=== PATIENT | female | born 1960 ===

== ENCOUNTER 2017-01-09 07:06 | Inpatient (IN) | payer MEDICAID ==
--- NOTE | 2017-01-09 07:34 | ED PDOC ---
Arrival/HPI - General Chief Complaint: ENT Problem Time Seen by Provider: 01/09/17 07:07 Historian: Patient, Family (Son) - History of Present Illness Narrative History of Present Illness (Text): 01/09/17 07:25 A 56 year old female, whose past medical history includes hypertension and depression, presents to the emergency department complaining of throat pain for 3-4 days. Patient's son reports that since symptoms occurred, patient has been unable to swallow and has been spitting into a container. Patient's speech, along with other symptoms, has worsened for the past 2 days. Patient was prescribed Levofloxacin, 500 mg 1 tablet per day, by PMD. Patient notes fever and has taken Ibuprofen for it, but denies of nausea, vomiting, diarrhea, shortness of breath, cough, or any other complaints. PMD: Dr. Jacques Marie Time/Duration: < week (3-4 days, symptoms worsened for the past 2 days.) Symptom Onset: Gradual Symptom Course: Unchanged Activities at Onset: Rest, Light Context: Home Past Medical History - Provider Review Nursing Documentation Reviewed: Yes Family/Social History - Physician Review Nursing Documentation Reviewed: Yes Family/Social History: No Known Family HX Allergies/Home Meds Allergies/Adverse Reactions: Allergies No Known Allergies Allergy (Verified 01/09/17 11:34) Home Medications: Home Meds Medication Instructions Recorded Confirmed Atorvastatin [Lipitor] 10 mg PO DAILY 01/09/17 01/09/17 Ibandronate Sodium [Boniva] 150 mg PO .EVERYMONTH 01/09/17 01/09/17 Levofloxacin [Levofloxacin] 500 mg PO DAILY 01/09/17 01/09/17 Levothyroxine [Synthroid] 25 mcg PO DAILY 01/09/17 01/09/17 Metoprolol Succinate XL [Toprol XL] 25 mg PO DAILY 01/09/17 01/09/17 Zolpidem [Ambien] 10 mg PO HS 01/09/17 01/09/17 Review of Systems - Physician Review All systems were reviewed & negative as marked: Yes - Review of Systems Constitutional: Fevers Respiratory: absent: SOB, Cough Gastrointestinal: absent: Diarrhea, Nausea, Vomiting Physical Exam Vital Signs Reviewed: Yes Vital Signs Temp Pulse Resp BP Pulse Ox 01/09/17 10:19 78 18 120/71 100 01/09/17 09:47 80 18 124/70 100 01/09/17 09:07 89 18 100 01/09/17 08:23 89 18 129/79 100 01/09/17 07:15 101.2 F H 93 H 18 105/65 100 Temperature: Febrile Blood Pressure: Normal Pulse: Regular Respiratory Rate: Normal Appearance: Positive for: Well-Appearing Pain Distress: None Mental Status: Positive for: Alert and Oriented X 3 - Systems Exam Head: Present: Atraumatic, Normocephalic Pupils: Present: PERRL Extroacular Muscles: Present: EOMI Conjunctiva: Present: Normal Mouth: Present: Moist Mucous Membranes Pharnyx: Present: ERYTHEMA (right tonsillar erythema), Uvular Deviation (uvula deviated to the left), Other (right tonsillar swelling). No: Peritonsilar Swelling Neck: Present: Normal Range of Motion Respiratory/Chest: Present: Clear to Auscultation, Good Air Exchange. No: Respiratory Distress, Accessory Muscle Use Cardiovascular: Present: Regular Rate and Rhythm, Normal S1, S2. No: Murmurs Abdomen: Present: Normal Bowel Sounds. No: Tenderness, Distention, Peritoneal Signs Back: Present: Normal Inspection Upper Extremity: Present: Normal Inspection. No: Cyanosis, Edema Lower Extremity: Present: Normal Inspection. No: Edema Neurological: Present: GCS=15, CN II-XII Intact, Speech Normal Skin: Present: Warm, Dry, Normal Color. No: Rashes Psychiatric: Present: Alert, Oriented x 3, Normal Insight, Normal Concentration Medical Decision Making ED Course and Treatment: 01/09/17 07:35 Impression: 56 year old female with throat pain Differential Diagnosis included but are not limited to: Tonsillitis vs. Retropharyngeal abscess Plan: -- Neck CT -- Tylenol -- Decadron -- Blood Culture -- Reassess and disposition Progress Notes: 01/09/17 09:30 Consulted case with ENT and was informed to send a resident to evaluate patient. 01/09/2017 09:[address] IMPRESSION: Severe swelling of the right palatine tonsil with low density fluid collection measuring 8 x 40 mm. This is consistent with a tonsillar abscess. Swelling of the epiglottis and right-sided aryepiglottic fold consistent with epiglottitis. Dictator : Hipolito Templeton Patient placed on oxygen humidified and NS IVF. 01/09/17 09:[address] Frederick, general surgical physician, for standby. Dr. Soliman Sail Finisher Hand came an placed trach kit to bedside. 01/09/17 10:[address] Leon, ENT, who agrees with plan and is on the way to evaluate patient. 01/09/17 10:[address] Barrera, ICU attending, states he will accept case for ICU. Admitted to Dr. Shaikh for Epiglotitis - Critical Care Critical Care Minutes: 30 minutes - Lab Interpretations Lab Results: 01/09/17 07:55 01/09/17 07:55 Lab Results 01/09/17 07:55: TSH 3rd Generation 3.10 01/09/17 07:55: Sodium 142, Potassium 4.1, Chloride 105, Carbon Dioxide 27, Anion Gap 14, BUN 17, Creatinine 0.9, Est GFR ( Amer) > 60, Est GFR (Non- Af Amer) > 60, Random Glucose 118 H, Calcium 8.7 01/09/17 07:55: WBC 13.2 H, RBC 4.26, Hgb 12.1, Hct 37.1, MCV 87.1, MCH 28.4, MCHC 32.6, RDW 14.0, Plt Count 171, MPV 11.8 H, Gran % 75.6 H, Lymph % (Auto) 17.4 L, Barton % (Auto) 6.6 H, Eos % (Auto) 0.2 L, Baso % (Auto) 0.2, Gran # 9.99 H, Lymph # 2.3, Barton # 0.9 H, Eos # 0.0, Baso # 0.02, ESR 44 H I have reviewed the lab results: Yes - RAD Interpretation Radiology Orders: 01/09/17 07:38 NECK SOFT TISSUE W/CONTRAST [CT] Stat Order Clerk: Radiologist - Medication Orders Current Medication Orders: Sodium Chloride (Sodium Chloride 0.9%) 1,000 mls @ 100 mls/hr IV .Q10H DASH Last Admin: 01/09/17 09:45 Dose: 100 mls/hr Discontinued Medications Dexamethasone (Decadron Inj) 10 mg IVP STAT STA Stop: 01/09/17 07:39 Last Admin: 01/09/17 08:02 Dose: 10 mg Ceftriaxone Sodium (Rocephin 2 Gm Ivpb) 2 gm in 100 mls @ 100 mls/hr IVPB STAT STA PRN Reason: Protocol Stop: 01/09/17 10:33 Last Admin: 01/09/17 09:53 Dose: 100 mls/hr Iohexol (Omnipaque 350 100 Ml) Confirm Administered Dose 350 mg .ROUTE .STK-MED ONE Stop: 01/09/17 08:33 Ketorolac Tromethamine (Toradol) 30 mg IVP STAT STA Stop: 01/09/17 08:12 Last Admin: 01/09/17 08:16 Dose: 30 mg Re-Assess: CANDICE Pain Assessment Document 01/09/17 09:16 NH (Rec: 01/09/17 09:59 [id number] Pain Reassessment Is this a pain reassessment? Yes Sleep Is patient sleeping during reassessment? No Presence of Pain Presence of Pain Yes Pain Scale Used Pain Scale Used Numeric Location Pain Location Body Site Throat Description Description Constant Intensity of Pain at present 8 Acceptable Level of Pain 2 - Scribe Statement The provider has reviewed the documentation as recorded by the Dignaibpraful Ambrose Provider Scribe Attestation: All medical record entries made by the Scribe were at my direction and personally dictated by me. I have reviewed the chart and agree that the record accurately reflects my personal performance of the history, physical exam, medical decision making, and the department course for this patient. I have also personally directed, reviewed, and agree with the discharge instructions and disposition. Disposition/Present on Arrival - Present on Arrival Any Indicators Present on Arrival: No - Disposition Have Diagnosis and Disposition been Completed?: Yes Diagnosis: Tonsillar abscess, Epiglottitis Disposition Time: 10:21 Patient Plan: Admission, ICU Condition: CRITICAL
[2017-01-09 08:11] LABS: BASO # 0.02 K/mm3 (0.0-2.0); BASO % 0.2 % (0.0-3.0); EOS % 0.2 % (1.5-5.0); GRAN # 9.99 (1.4-6.5); GRAN % 75.6 % (50.0-68.0); HEMOGLOBIN 12.1 g/dL (12.0-16.0); LYMPH # 2.3 (1.2-3.4); LYMPH % 17.4 % (22.0-35.0); MEAN CELL VOLUME 87.1 fl (80.0-105.0); MEAN CORPUSCULAR HEMOGLOBIN 28.4 pg (25.0-35.0); MEAN CORPUSCULAR HGB CONC 32.6 g/dl (31.0-37.0); MEAN PLATELET VOLUME 11.8 fl (7.0-11.0); MONO # 0.9 (0.1-0.6); MONO % 6.6 % (1.0-6.0); PLATELET COUNT 171 10^3/uL (120.0-450.0); RBC 4.26 10^6/uL (3.5-6.1); WHITE BLOOD COUNT 13.2 10^3/ul (4.5-11.0)
[2017-01-09 08:21] LABS: BLOOD UREA NITROGEN 17 mg/dL (7-21); CALCIUM 8.7 mg/dL (8.4-10.5); GFR AFRICAN-AMERICAN > 60; GFR NON-AFRICAN AMERICAN > 60
[2017-01-09] MEDS ORDERED: Iohexol 350 MG/100 ML VIAL ONE (08:32)
[2017-01-09] MEDS ORDERED: cefTRIAXone 2 GM IN NS 2 GM/100 ML BAG IVPB STA (09:34)
--- NOTE | 2017-01-09 09:35 | CT ---
PROCEDURE: CT NECK WITH CONTRAST HISTORY: right swelling r/o retropharygneal abscess COMPARISON: None TECHNIQUE: CT of the neck with intravenous contrast. Coronal and sagittal reformats generated. Intravenous contrast dose: 100 cc of Omni 350 Radiation dose: DLP 268 mGy-cm This CT exam was performed using one or more of the following dose reduction techniques: Automated exposure control, adjustment of the mA and/or kV according to patient size, and/or use of iterative reconstruction technique. FINDINGS: NASOPHARYNX: Unremarkable. SUPRAHYOID NECK: There is severe swelling of the right palatine tonsil. There is also a central area of hypodensity within the tonsil measuring 9 mm in diameter and 40 mm in length. This is consistent with a tonsillar abscess. This is best demonstrated on sagittal image 40 and axial images 35 through 55. This collection extends down to the level of the larynx in the right piriform sinus seen on image 55. INFRAHYOID NECK: There is also swelling of the epiglottis consistent with epiglottitis. This is best seen on image 48. There is swelling of the right-sided area epiglottic fold seen on image 50. There is narrowing of the airway at this level . There is no evidence of retropharyngeal swelling or abscess. Findings were discussed with Dr. Barber at 9:30 a.m. MASS: None. GLANDS: Parotid and submandibular glands unremarkable. Normal size thyroid gland, without nodule. LYMPH NODES: Normal. No lymphadenopathy. CERVICAL SPINE: No fracture or focal lesion. VASCULAR STRUCTURES: Unremarkable. OTHER FINDINGS: None. IMPRESSION: Severe swelling of the right palatine tonsil with low density fluid collection measuring 8 x 40 mm. This is consistent with a tonsillar abscess. Swelling of the epiglottis and right-sided aryepiglottic fold consistent with epiglottitis.
[2017-01-09] MEDS: Sodium Chloride 0.9% 1,000 ML IV SCH ×2 (09:45→23:42)
--- NOTE | 2017-01-09 11:42 | CP.PCM.HP ---
<Murtaza Benavidez - Last Filed: 01/09/17 13:02> History of Present Illness - History of Present Illness History of Present Illness: Patient is a 56 year old female with PMH significant for HTN, HLD, Hypothyroidism and anxiety who presents with a 3-4 day history of progressively worsening throat pain. The patient has associated tenderness in her right neck and difficulty/pain with swallowing. Patient reports she is able to breath and swallow liquids. She reports fever for the past 24 hours and history of non productive cough for the past 1 month. The patient was prescribed levofloxacin 500mg by her PMD, Dr. Jacques Vail for which she has taken two days worth. She denies chest pain, shob, nausea, vomiting. Patient denies any previous history of similar presentations. Patient was evaluated in the ED with neck soft tissue CT showing severe swelling of the right palatine tonsil with low density fluid collection measuring 8x40 mm consistent with a tonsillar abscess. ENT was consulted and evaluated the patient at bedside. Patient was given ceftriaxone 1gm in the ED and admitted to the ICU for monitoring of airway status. PMH: Hypothyroid, HTN, HLD, Osteoporosis, Anxiety PSH: none FMH: none Soc Hx: T-,E-,D- All: NKDA Meds: See MAR PMD: Dr. Jacques Vail Present on Admission - Present on Admission Any Indicators Present on Admission: No History of DVT/PE: No History of Uncontrolled Diabetes: No Urinary Catheter: No Decubitus Ulcer Present: No Review of Systems - Constitutional Constitutional: Fever - EENT Eyes: As Per HPI Ears: As Per HPI Nose/Mouth/Throat: Change in Voice, Hoarsness, Sore Throat. absent: Nasal Congestion, Nasal Discharge, Lip Swelling, Mouth Lesions, Odynophagia, Throat Swelling - Cardiovascular Cardiovascular: absent: Chest Pain, Chest Pain at Rest, Dyspnea - Respiratory Respiratory: absent: Cough, Dyspnea, Hemoptysis, Stridor - Gastrointestinal Gastrointestinal: Dysphagia. absent: Abdominal Pain, Belching, Heartburn, Nausea, Vomiting - Genitourinary Genitourinary: As Per HPI - Musculoskeletal Musculoskeletal: As Per HPI. absent: Abnormal Gait, Arthralgias, Atrophy, Back Pain, Deformity, Joint Swelling, Limited Range of Motion, Loss of Height, Muscle Cramps, Muscle Weakness, Myalgias, Neck Pain, Numbness, Radiating Pain into Limb, Stiffness, Tingling, Other - Integumentary Integumentary: absent: As Per HPI, Acne, Alopecia, Bleeding Lesions, Change in Hair, Change in Nails, Change in Pigmentation, Changing Lesions, Dry Skin, Erythema, Furuncle, Hirsutism, Lesions, New Lesions, Non-Healing Lesions, Photosensitivity, Pruritus, Rash, Skin Pain, Skin Ulcer, Sores, Striae, Swelling , Unusual Bruising, Wounds, Jaundice, Other - Neurological Additional comments: negative - Psychiatric Psychiatric: Abnormal Sleep Pattern, Anxiety Past Patient History - Past Social History Smoking Status: Never Smoked Alcohol: None Drugs: Denies - CARDIAC Hx Hypercholesterolemia: Yes Hx Hypertension: Yes - PULMONARY Hx Respiratory Disorders: No - NEUROLOGICAL Hx Neurological Disorder: No - HEENT Hx HEENT Problems: No - RENAL Hx Chronic Kidney Disease: No - ENDOCRINE/METABOLIC Hx Hypothyroidism: Yes - HEMATOLOGICAL/ONCOLOGICAL Hx Blood Disorders: No - INTEGUMENTARY Hx Dermatological Problems: No - MUSCULOSKELETAL/RHEUMATOLOGICAL Hx Musculoskeletal Disorders: No - GASTROINTESTINAL Hx Gastrointestinal Disorders: No - GENITOURINARY/GYNECOLOGICAL Hx Genitourinary Disorders: No - PSYCHIATRIC Hx Psychophysiologic Disorder: No Hx Substance Use: No - SURGICAL HISTORY Hx Surgeries: No Meds Allergies/Adverse Reactions: Allergies Allergy/AdvReac Type Severity Reaction Status Date / Time No Known Allergies Allergy Verified 01/09/17 11:36 Physical Exam - Constitutional Appears: Well - Head Exam Head Exam: ATRAUMATIC, NORMAL INSPECTION, NORMOCEPHALIC - Eye Exam Eye Exam: EOMI, PERRL - ENT Exam ENT Exam: Mucous Membranes Moist, Normal Exam Additional comments: Tonsillitis, cervical soft tissue tenderness R>L, Uv[place]a midline - Neck Exam Neck exam: Positive for: Full Rom, Tenderness (soft tissue right more then left) - Respiratory Exam Respiratory Exam: Clear to Auscultation Bilateral, NORMAL BREATHING PATTERN. absent: Wheezes, Stridor - Cardiovascular Exam Cardiovascular Exam: REGULAR RHYTHM, +S1, +S2 - GI/Abdominal Exam GI & Abdominal Exam: Normal Bowel Sounds, Soft - Back Exam Back exam: FULL ROM, NORMAL INSPECTION - Neurological Exam Neurological exam: Alert, Oriented x3 Additional comments: motor and sensory grossly intact - Psychiatric Exam Psychiatric exam: Normal Affect, Normal Mood - Skin Skin Exam: Dry, Normal Color, Warm Results - Vital Signs Recent Vital Signs: Last Vital Signs Temp 98.2 F 01/09/17 11:27 Pulse 83 01/09/17 11:27 Resp 18 01/09/17 11:27 BP 121/70 01/09/17 11:27 Pulse Ox 100 01/09/17 11:27 - Labs Result Diagrams: 01/09/17 07:55 01/09/17 07:55 Assessment & Plan - Assessment and Plan (Free Text) Assessment: Pt is a 56 year old female with past medical history of HTN, Hypothyroid, Anxiety, HLD, and osteoporosis who presents with suspected epiglottitis secondary to right sided peritonsillar abscess Plan: 1. Epiglottitis - CT evidence showing severe welling of the right palatine tonsil with low density fluid collection measuring 8x40mm, consistent with tonsillar abscess. - Airway intact with no respiratory distress noted - O2 delivery for O2 sat goal >93% - NPO - IVF - ENT consulted and following - Antibiotics: Ceftriaxone and Vancomycin - admit to ICU for further monitoring 2. Hx of HTN - hold home HTN meds - monitor 3. Hx of HLD - hold home meds 4. Hx of Hypothyroidism - hold home meds 5. DVT ppx - SCDS dispo: monitor in ICU for airway status while awaiting intervention - Date & Time Date: 01/09/17 Time: 13:17 <Neema Shaikh - Last Filed: 01/09/17 16:58> Results - Vital Signs Recent Vital Signs: Last Vital Signs Temp 98.2 F 01/09/17 12:55 Pulse 80 01/09/17 16:05 Resp 14 01/09/17 16:05 BP 143/83 01/09/17 16:05 Pulse Ox 100 01/09/17 16:05 - Labs Result Diagrams: 01/09/17 07:55 01/09/17 07:55 Attending/Attestation - Attestation I have personally seen and examined this patient.: Yes I have fully participated in the care of the patient.: Yes I have reviewed all pertinent clinical information: Yes Notes (Text): 01/09/17 16:56 attending note; Patient seen and examined with resident in ER. patient's son by the bedside. Patient is a 56 year old female with PMH significant for HTN, HLD, Hypothyroidism and anxiety who presents with a 3-4 day history of progressively worsening throat pain. CT scan showed right peritonsillar abscess with significant swelling. Started on IV anti-biotics. Continue IV decadran. ENT evaluation requested. Patient will be admitted to ICU for close observation. The diagnosis and treatment plan discussed with patient and patient's son in detail.
[2017-01-09] MEDS ORDERED: Pneumococcal 23-Valent Vaccine IM ONE (13:31)
[2017-01-09 13:32] VITALS: BMI 21.1
[2017-01-09] MEDS: Dexamethasone 4 mg/1 ml IVP SCH ×2 (13:42→21:47)
[2017-01-09] MEDS ORDERED: Propofol 10 mg/ml Inj (20 ML) ONE (13:51)
[2017-01-09] MEDS ORDERED: Midazolam 2 MG/2 ML VIAL ONE (13:52)
[2017-01-09] MEDS ORDERED: Rocuronium 10 mg/ml (5 ml) ONE (13:53)
[2017-01-09] MEDS ORDERED: Succinylcholine 200 mg/10 ml Inj IV ONE (13:53)
[2017-01-09] MEDS ORDERED: Bupivacaine 0.25% Inj(30mL) ONE (13:54)
[2017-01-09] MEDS ORDERED: Propofol 10 mg/ml 1,000 MG/100 ML VIAL IV PRN (16:10)
[2017-01-09] MEDS ORDERED: Propofol 10 mg/ml 1,000 MG/100 ML VIAL ONE (16:14)
--- NOTE | 2017-01-09 17:26 | CP.PCM.PN ---
<KEIRY CHAVEZ - Last Filed: 01/09/17 17:29> Subjective - Date & Time of Evaluation Date of Evaluation: 01/09/17 Time of Evaluation: 11:00 - Subjective Subjective: Keiry Chavez DO PGY1 - ICU Consult Note Patient is a 56 yo F with PMH of HTN, HLD, hypothyroidism, and anxiety. She was seen in the ED initially, then postprocedure. She initially presented to the ED with 3-4 day history of worsening dysphagia. She also admits to some dyspnea , fever, cough. She has been taking levaquin per her PMD for the past two days. Denies SB, SOB, n/v/d/c. CT soft tissue neck in the ED was significant for severe swelling of the right palatine tonsil with low density fluid collection consistent with a tonsillar abscess, as well as swelling of the epiglottis consistent with epiglotitis. ENT was consulted and she was taken to the OR for drainage of the tonsilar abscess under anasthesia, rather than bedside, because of the high risk of airway compromise. In the OR, there was no collection of fluid noted or drained, so she remains intubated, and presented to the ICU for vent management and monitoring her airway and respiratory status. PMH: Hypothyroid, HTN, HLD, Osteoporosis, Anxiety PSH: none FMH: none Soc Hx: T-,E-,D- All: NKDA Meds: See AUG PMD: Dr. Jacques Vail Objective - Vital Signs/Intake and Output Vital Signs (last 24 hours): Temp Pulse Resp BP Pulse Ox 98.2 F 80 14 143/83 100 01/09/17 12:55 01/09/17 16:05 01/09/17 16:05 01/09/17 16:05 01/09/17 16:05 - Medications Medications: Current Medications Dexamethasone (Decadron Inj) 4 mg IVP Q8 DASH Last Admin: 01/09/17 13:42 Dose: 4 mg Sodium Chloride (Sodium Chloride 0.9%) 1,000 mls @ 100 mls/hr IV .Q10H DASH Last Admin: 01/09/17 09:45 Dose: 100 mls/hr Ampicillin Sodium/Sulbactam (Sodium 3 gm/ Sodium Chloride) 100 mls @ 200 mls/ hr IVPB Q6 DASH PRN Reason: Protocol Propofol (Diprivan) 1,000 mg in 100 mls @ 2 mls/hr IV .Q24H PRN; Protocol; 5 MCG/KG/MIN PRN Reason: TITRATE PER MD ORDER Ondansetron HCl (Zofran Inj) 4 mg IVP Q4H PRN PRN Reason: Nausea/Vomiting Pantoprazole Sodium (Protonix Inj) 40 mg IVP DAILY [facility] Last Admin: 01/09/17 14:09 Dose: 40 mg - Constitutional Appears: Other (Initially seen in the ED, receiving a nebulized breathing treatment and breathing O2 by facemask, resting comfortably. Seen again postprocedure, intubated, sedated.) - Head Exam Head Exam: ATRAUMATIC, NORMOCEPHALIC - Eye Exam Eye Exam: EOMI, Normal appearance, PERRL - ENT Exam ENT Exam: Mucous Membranes Moist Additional comments: Unable to visualize oropharynx - Neck Exam Additional comments: Mild tenderness anterior right. - Respiratory Exam Respiratory Exam: Clear to Ausculation Bilateral. absent: Stridor - Cardiovascular Exam Cardiovascular Exam: RRR, +S1, +S2 - GI/Abdominal Exam GI & Abdominal Exam: Soft, Normal Bowel Sounds. absent: Tenderness - Extremities Exam Extremities Exam: Normal Inspection. absent: Calf Tenderness, Pedal Edema - Neurological Exam Neurological Exam: Alert, Awake, Oriented x3 Additional comments: Seen initially in ED, grossly neurologically intact. Seen again postprocedure, sedated. - Psychiatric Exam Psychiatric exam: Normal Affect, Normal Mood - Skin Skin Exam: Dry, Intact Assessment and Plan - Assessment and Plan (Free Text) Assessment: Pt is a 56 year old female presenting to the ICU s/p incision and drainage of tonsillar abscess, intubated, for ventilator management and monitoring of respiratory status. Plan: 1. Epiglottitis and Tonsillar abscess - Patient is currently intubated. Started propofol for sedation. Patient was also receiving clindamycin for the tonsillar abscess, which was started preop. Approximately 30 minutes after propofol was started, urticarial hives noted on chest and neck. Propofol and clindamycin were discontinued. Given 50mg benadryl stat. No concern for airway compromise, and patient is already sedated. Started on fentanyl for continued sedation. - Will remain intubated and reevaluate with repeat contrast CT tomorrow - Lung protective ventilation strategies. Current setting 400/5/14/40% - ID consulted, recommends unasyn - ENT on consult - Continue fentanyl for comfort and sedation - Continue decadron for reduced inflammation - Likely extubate tomorrow - NPO until extubation, advance diet as tolerated - NS @100/hr to avoid contrast nephropathy - Maintain euglycemia, normothermia, MAP>65, O2 sat >90%, euvolemia Ppx: Protonix and SCDs Patient seen discussed and reviewed with attending <Ezekiel Barrera - Last Filed: 01/09/17 18:41> Objective - Vital Signs/Intake and Output Vital Signs (last 24 hours): Temp Pulse Resp BP Pulse Ox 97.4 F L 72 14 153/81 H 100 01/09/17 18:00 01/09/17 18:20 01/09/17 18:20 01/09/17 18:00 01/09/17 18:20 Intake and Output: 01/09/17 01/09/17 06:59 18:59 Intake Total 702 Output Total 400 Balance 302 - Medications Medications: Current Medications Dexamethasone (Decadron Inj) 4 mg IVP Q8 DASH Last Admin: 01/09/17 13:42 Dose: 4 mg Diphenhydramine HCl (Benadryl) 50 mg IVP Q4H PRN PRN Reason: Allergy symptoms Last Admin: 01/09/17 17:52 Dose: 50 mg Sodium Chloride (Sodium Chloride 0.9%) 1,000 mls @ 100 mls/hr IV .Q10H DASH Last Admin: 01/09/17 09:45 Dose: 100 mls/hr Ampicillin Sodium/Sulbactam (Sodium 3 gm/ Sodium Chloride) 100 mls @ 200 mls/ hr IVPB Q6 DASH PRN Reason: Protocol Last Admin: 01/09/17 18:02 Dose: Not Given Fentanyl Citrate (Fentanyl Citrate/Sodium Chloride 1 Mg/100 Ml) 1,000 mcg in 100 mls @ 2 mls/hr IV .Q24H PRN; Protocol; 20 MCG/HR PRN Reason: TITRATE PER MD ORDER Last Admin: 01/09/17 17:54 Dose: 20 mcg/hr, 2 mls/hr Ondansetron HCl (Zofran Inj) 4 mg IVP Q4H PRN PRN Reason: Nausea/Vomiting Pantoprazole Sodium (Protonix Inj) 40 mg IVP DAILY DASH Last Admin: 01/09/17 14:09 Dose: 40 mg Assessment and Plan - Assessment and Plan (Free Text) Assessment: Patient seen and examined with resident, agree with assessment and plan. Epiglottitis Tonsilar Abscess HTN Recommend - keep intubated, sedated for now - low tidal volume ventilation - Unasyn IV - follow up cultures - IVF - Decadron IV - NPO - repeat CT Neck in the AM - follow up ENT - GI ppx - DVT ppx - cont care in MICU
[2017-01-09] MEDS ORDERED: DiphenhydrAMINE 50 mg/ml Inj ONE (17:35)
[2017-01-09] MEDS: Ampicillin/Sulbactam 3 GM in Sodium Chloride 0.9% 100 ML IVPB SCH ×3 (17:51→23:40)
[2017-01-09] MEDS: DiphenhydrAMINE 50 mg/ml Inj IVP PRN ×2 (17:52→21:47)
[2017-01-09] MEDS: Fentanyl 1000mcg/100ml NS 1,000 MCG/100 ML BAG IV PRN (17:54)
--- NOTE | 2017-01-10 00:49 | CARD ---
APPROVED REPORT EKG Measurement Heart [id number] <Conclusion> Normal sinus rhythm Nonspecific ST and T wave abnormality Abnormal ECG
--- NOTE | 2017-01-10 00:58 | CON ---
DATE: 01/09/2017 REFERRING PHYSICIAN: Onel Barber DO REASON FOR CONSULTATION: Epiglottitis. HISTORY OF PRESENT ILLNESS: This is a 56-year-old female with past medical history of hypertension, depression, who came into the emergency room at [facility] complaining of a 3- to 4-day history of sore throat per the patient's son at the bedside. The patient has been having difficulty swallowing at home with very sore throat. She saw her primary care doctor, who prescribed her levofloxacin daily, which she has been taking for the past day or so without improvement in her symptoms. The patient's son reports that last night she also began to have some difficulty breathing prompting their visit to the emergency room today. The patient also reports fever and chills at home. Otherwise, she denies chest pain, shortness of breath, and nausea, vomiting, diarrhea. Upon examination, she is having difficult time speaking, her voice is soft and slightly raspy. She denies any current shortness of breath or difficulty breathing, but she does say it is very tender to touch her neck and also she does have odynophagia. The patient reports that she had a dental work done about 2 weeks ago, does not remember what the dentist was. The patient also reports no recent illnesses, cough, rhinorrhea, postnasal drip. Does not have any similar inciting events in the past. At this point, denies other ear, nose, and throat complaints. PAST MEDICAL HISTORY: Hypertension, hyperlipidemia, depression, and hypothyroidism. PAST SURGICAL HISTORY: She has had gynecological surgery. ALLERGIES: NO KNOWN DRUG ALLERGIES. SOCIAL HISTORY: Denies alcohol or tobacco abuse. Does not currently work. MEDICATIONS: Her home medications include Synthroid, metoprolol, atorvastatin, zolpidem, Boniva, and levofloxacin for the past 2 days. REVIEW OF SYSTEMS: Negative as per HPI. PHYSICAL EXAMINATION GENERAL: She is awake, alert, and oriented x3, in no acute distress. No stridor, no drooling, lying comfortably. VITAL SIGNS: Temperature 98.2, pulse 83, blood pressure 121/70, respiratory rate 18, O2 saturation 100% on humidified air. HEENT: Eyes, extraocular movements grossly intact. No visual changes. Ears, external auricles unremarkable. Nose is patent bilaterally. No discharge. No epistaxis. Oral cavity, oropharynx, lips are unremarkable. Floor of mouth unremarkable. Tongue, mobile and midline. Nonedematous. Soft palate is symmetrical. She does have bulging of the right peritonsillar area, but no uvular edema or uvular deviation. No exudates. No posterior pharyngeal wall erythema. NECK: Significant tenderness to palpation anterior, more so on the right side. Supple. Trachea is midline. No thyromegaly appreciated. LUNGS: Respirations are nonlabored. No stridor, no drooling, no wheezing appreciated. LABORATORY DATA: She has a white count of 13.2, hemoglobin 12.1, hematocrit 37.1, platelet count 171. She has sodium of 142, potassium 4.1, chloride 105, carbon dioxide 27, BUN 17, calcium 8.7, TSH is 3.10. IMAGING: She has a CT scan of the neck with contrast which reads as severe swelling of the right palatine tonsil with central area of hypodensity within the tonsil measuring 9 mm in diameter and 40 mm in length consistent with a tonsillar abscess. Collection extends down to the level of the larynx and the right pyriform sinus. There is also swelling of the epiglottis consistent with epiglottitis, also associated swelling of the right-sided aryepiglottic fold. There is narrowing of the airway at this level. No evidence of retropharyngeal swelling or abscess. PROCEDURE Direct fiber laryngoscopy. The patient was in an upright position and direct fiberoptic laryngoscope was inserted into the patient's nasal passageway. The nasal passages were patent and unremarkable. The scope was flexed down into the nasopharynx. The eustachian tubes were patent bilaterally. The posterior pharyngeal wall did demonstrate some swelling on the right. The uvula appeared nonedematous. There was swelling noted from the right peritonsillar area. Upon advancing the scope further down, the base of the tongue was noted to be normal. The epiglottis did have some mild edema, but was not retroflexed and was not covering the airway. Advancing the scope further, there was blunting of the right pyriform sinus. There was also moderate to severe swelling of the right aryepiglottic fold and false vocal cord, which was protruding into the airway and covering the right true vocal cord. The left true vocal cord was visualized, the cords appeared to approximate normally . The scope was removed and the patient tolerated the procedure well. SECOND PROCEDURE Right peritonsillar abscess, needle aspiration. After obtaining consent, the right peritonsillar region was injected with 1% lidocaine for vocal anesthesia, afterwards an 18-gauge needle on 10 cc Syringe was used on to the right peritonsillar space. About 1 mL of purulent material was drained and sent for culture. The patient tolerated the procedure well and adequate hemostasis was achieved at the termination of the procedure. ASSESSMENT AND PLAN: This is a 56-year-old female, who comes in with a 3-day history of a sore throat. CAT scan demonstrates right peritonsillar abscess which tracks down into the right pyriform area with associated edema to the epiglottis and right aryepiglottic fold. At this point, the abscess was unable to be drained at the bedside, therefore recommend draining of the abscess in the operating room. At the same time, the patient can be intubated to safely protect the airway given the concerning edematous changes to the epiglottis and aryepiglottic fold at this time. Attempted medical management, would recommend that the patient receive high-dose steroids and IV antibiotics, clindamycin or Unasyn. The patient should also be kept n.p.o. with IV fluids and plan for the operating room today. After the operating room, would recommend ICU management with continuous pulse oximetry and close monitoring for resolution of symptoms. Thank you for allowing us to participate in this patient's care. Atiilo Headley DO
--- NOTE | 2017-01-10 03:51 | OP ---
PROCEDURE DATE: 01/09/2017 PREOPERATIVE DIAGNOSIS: Right peritonsillar and pyriform sinus abscess and mild epiglottitis. POSTOPERATIVE DIAGNOSIS: Right peritonsillar and pyriform sinus abscess and mild epiglottitis. PROCEDURE: Incision and drainage of right peritonsillar abscess and direct laryngoscopy. SURGEON: Dr. Atilio Headley. DREDGE ENGINEER: Dr. Leon. TYPE OF ANESTHESIA: General endotracheal. FINDINGS: Small right peritonsillar abscess with associated edema to the right peritonsillar and right pyriform space and fullness of the right pyriform fossa in addition to mild epiglottic edema and right arytenoid area of the glottic and false vocal cord edema. IV FLUID INTAKE: Crystalloid. ESTIMATED BLOOD LOSS: 10 mL COMPLICATIONS: None. SPECIMEN: Culture from peritonsillar abscess. CONDITION: Intubated, stable to the ICU. INDICATION FOR PROCEDURE: This is a 56-year-old female with past medical history of hypertension, hyperlipidemia and hypothyroidism who came into the [place] [facility] with sore throat and had CAT scan of her neck demonstrating right tonsillar abscess tracking into the right pyriform sinus in addition to epiglottitis and aryepiglottic fold swelling. Attempt was made to drain the peritonsillar abscess at the bedside, however, minimal pus was drained. For the reason of securing the patient's airway due to the epiglottic and aryepiglottic swelling, the decision was made to bring the patient to the operating room for and incision and drainage and intubation to secure her airway. Benefits and risks of the procedure were discussed with the patient and her son at the bedside. She agreed to the procedure and signed informed consent. PROCEDURE IN DETAIL: On 01/09/2017, the patient was brought to the operating room and placed supine on operating table. At this point, general anesthesia was induced and a time-out was called confirming the patient's procedure and the patient's allergies. No perioperative antibiotics were given as they were not indicated. The McIvor mouthgag was used to open the oral cavity and suspended on the Liu stand. Swelling was noted to the right peritonsillar space extending down into the pyriform sinus. An #11 blade was used to make an incision in the right peritonsillar space. An Allis clamp was used to spread and open up the peritonsillar pocket. In addition, another incision was made in the lower lateral pole of the peritonsillar space, and again with an #11 blade, a hemostat was used to open up the space. A small amount of purulent drainage was expelled from this area and sent for culture. Afterwards, the McIvor mouthgag was removed from the oral cavity and direct laryngoscopy was performed. A tooth guard was inserted in the oral cavity on the upper dentition and direct laryngoscope was inserted into the oral cavity. The soft palate and hard palate were noted be normal. Uvula was noted to be normal. Left tonsil was noted to be normal. Right tonsil did demonstrate the left peritonsillar fullness. Direct laryngoscope was advanced further. The base of the tongue appeared to be normal. The epiglottis was noted to be slightly edematous and the right pyriform sinus was noted to be blunted and full in appearance. Upon applying pressure to the outside of the right neck, additional small amount of purulent material was seen draining from the right peritonsillar space into the pyriform sinus, which was suctioned. The aryepiglottic fold on the right demonstrated edema. The aryepiglottic fold on the left was normal in appearance. The left vocal cord was normal in appearance. The right vocal cord was nonedematous, but did demonstrate yellow darker tinge compared to the left. The left pyriform sinus was normal in appearance. At this point, no additional purulent drainage was able to be expressed by pressure on the neck, and through the already existing incision, the direct laryngoscope was removed from the patient's mouth and decision was made to terminate the procedure. The dental guard was removed from the patient's oral cavity. At the termination of the procedure, decision was made to leave the patient intubated due to the edema and swelling noted in the hypopharynx as described above. The patient tolerated the procedure well and was transferred to the ICU in stable condition. Atilio Headley DO
[2017-01-10] MEDS: Ampicillin/Sulbactam 3 GM in Sodium Chloride 0.9% 100 ML IVPB SCH ×3 (05:24→17:33)
[2017-01-10] MEDS: Dexamethasone 4 mg/1 ml IVP SCH ×3 (05:24→21:46)
[2017-01-10 06:55] LABS: GRAN # 9.57 (1.4-6.5); GRAN % 82.7 % (50.0-68.0); HEMOGLOBIN 11.1 g/dL (12.0-16.0); LYMPH # 1.4 (1.2-3.4); LYMPH % 11.9 % (22.0-35.0); MEAN CELL VOLUME 86.7 fl (80.0-105.0); MEAN CORPUSCULAR HEMOGLOBIN 27.8 pg (25.0-35.0); MEAN CORPUSCULAR HGB CONC 32.1 g/dl (31.0-37.0); MEAN PLATELET VOLUME 10.8 fl (7.0-11.0); MONO # 0.6 (0.1-0.6); MONO % 5.4 % (1.0-6.0); PLATELET COUNT 149 10^3/uL (120.0-450.0); RBC 3.99 10^6/uL (3.5-6.1); RED CELL DISTRIBUTION WIDTH 14.1 % (11.5-14.5); WHITE BLOOD COUNT 11.6 10^3/ul (4.5-11.0)
[2017-01-10 07:13] LABS: ALB/GLOB RATIO 1.2 (1.1-1.8); ALBUMIN 3.7 g/dL (3.0-4.8); ALT/SGPT 33 U/L (7-56); AST/SGOT 25 U/L (15-39); BLOOD UREA NITROGEN 21 mg/dL (7-21); CALCIUM 7.9 mg/dL (8.4-10.5); GFR AFRICAN-AMERICAN > 60; GFR NON-AFRICAN AMERICAN > 60
[2017-01-10] MEDS: Fentanyl 1000mcg/100ml NS 1,000 MCG/100 ML BAG IV PRN (07:36)
[2017-01-10] MEDS ORDERED: Iohexol 350 MG/100 ML VIAL ONE (09:43)
[2017-01-10] MEDS ORDERED: cefTRIAXone 2 GM IN NS 2 GM/100 ML BAG IVPB SCH (10:00)
[2017-01-10 10:09] LABS: INR 1.15 (0.93-1.08); PARTIAL THROMBOPLASTIN TIME 28.4 Seconds (23.7-30.8); PROTHROMBIN TIME 12.4 Seconds (9.9-11.8)
[2017-01-10] MEDS: Lactated Ringer's 1,000 ML IV SCH ×2 (10:45→17:39)
--- NOTE | 2017-01-10 10:49 | CP.PCM.PN ---
<Murtaza Benavidez - Last Filed: 01/10/17 11:19> Subjective - Date & Time of Evaluation Date of Evaluation: 01/10/17 Time of Evaluation: 10:47 - Subjective Subjective: Patient s/e this AM in ICU. No acute events overnight. Past 24 hours patient was taken to OR for drainage of peritonsillar abscess with ENT. Notes indicate minimal drainage of abscess and concern for airway protection. Patient was intubated in OR to maintain airway, and remains intubated this AM. Patient complains of continued throat discomfort and irritation from intubation tube. Pt denies chest pain, shortness of breath, abdominal pain, fever, nausea. Objective - Vital Signs/Intake and Output Vital Signs (last 24 hours): Temp Pulse Resp BP Pulse Ox 97.8 F 56 L 14 134/74 100 01/10/17 08:00 01/10/17 08:10 01/10/17 07:05 01/10/17 08:00 01/10/17 08:10 Intake and Output: 01/10/17 01/10/17 06:59 18:59 Intake Total 1500 5 Output Total 200 Balance 1300 5 - Medications Medications: Current Medications Dexamethasone (Decadron Inj) 4 mg IVP Q8 [facility] Last Admin: 01/10/17 05:24 Dose: 4 mg Diphenhydramine HCl (Benadryl) 50 mg IVP Q4H PRN PRN Reason: Allergy symptoms Last Admin: 01/09/17 21:47 Dose: 50 mg Heparin Sodium (Porcine) (Heparin) 5,000 units SC Q12 [facility] PRN Reason: Protocol Last Admin: 01/10/17 09:34 Dose: 5,000 units Ampicillin Sodium/Sulbactam (Sodium 3 gm/ Sodium Chloride) 100 mls @ 200 mls/ hr IVPB Q6 [facility] PRN Reason: Protocol Last Admin: 01/10/17 05:24 Dose: 200 mls/hr Fentanyl Citrate (Fentanyl Citrate/Sodium Chloride 1 Mg/100 Ml) 1,000 mcg in 100 mls @ 2 mls/hr IV .Q24H PRN; Protocol; 20 MCG/HR PRN Reason: TITRATE PER MD ORDER Last Titration: 01/10/17 08:21 Dose: 80 mcg/hr, 8 mls/hr Lactated Ringer's (Lactated Ringer's) 1,000 mls @ 150 mls/hr IV .Q6H40M [facility] Last Admin: 01/10/17 10:45 Dose: 150 mls/hr Ondansetron HCl (Zofran Inj) 4 mg IVP Q4H PRN PRN Reason: Nausea/Vomiting Pantoprazole Sodium (Protonix Inj) 40 mg IVP DAILY [facility] Last Admin: 01/10/17 09:35 Dose: 40 mg - Labs Labs: 01/10/17 06:40 01/10/17 06:40 PT 12.4 Seconds (9.9-11.8) H 01/10/17 09:53 INR 1.15 (0.93-1.08) H 01/10/17 09:53 APTT 28.4 Seconds (23.7-30.8) 01/10/17 09:53 - Head Exam Head Exam: ATRAUMATIC, NORMAL INSPECTION - Eye Exam Eye Exam: EOMI, PERRL - ENT Exam Additional comments: Intubated - Neck Exam Neck Exam: Tenderness (right sided>left sided) - Respiratory Exam Respiratory Exam: Clear to Ausculation Bilateral, NORMAL BREATHING PATTERN - Cardiovascular Exam Cardiovascular Exam: REGULAR RHYTHM, +S1, +S2 - GI/Abdominal Exam GI & Abdominal Exam: Soft, Normal Bowel Sounds - Extremities Exam Extremities Exam: Full ROM, Normal Inspection - Neurological Exam Neurological Exam: Alert, Awake, Oriented x3 Neuro motor strength exam: Left Upper Extremity: 5, Right Upper Extremity: 5, Left Lower Extremity: 5, Right Lower Extremity: 5 - Psychiatric Exam Psychiatric exam: Normal Affect, Normal Mood - Skin Skin Exam: Dry, Normal Color, Warm Assessment and Plan - Assessment and Plan (Free Text) Assessment: Patient is a 56 year old female with past medical history that includes HTN, Hypothyroid, HLD, and anxiety who was admitted to the ICU for epiglottitis secondary to peritonsillar abscess formation Plan: 1. Epiglottitis secondary to peritonsillar abscess - Repeat CT of neck to assess status/progression of abscess s/p drainage from yesterday - ENT consulted and following patient, possible surgery again today pending CT results - IVF to LR today due to elevated sodium - NPO - Maintain intubation status for protection of airway - Decadron IV - ID consutled, Unasyn IV with plan to switch to Augmentin upon discharge for outpatient follow up 2. Hx of HTN - stable - monitor 3. GI/DVT ppx - Protonix, SCDs <Estefania Beaulieu B - Last Filed: 01/10/17 15:24> Objective - Vital Signs/Intake and Output Vital Signs (last 24 hours): Temp Pulse Resp BP Pulse Ox 97.8 F 56 L 14 134/74 100 01/10/17 08:00 01/10/17 08:10 01/10/17 07:05 01/10/17 08:00 01/10/17 08:10 Intake and Output: 01/10/17 01/10/17 06:59 18:59 Intake Total 1500 5 Output Total 200 Balance 1300 5 - Medications Medications: Current Medications Dexamethasone (Decadron Inj) 4 mg IVP Q8 [facility] Last Admin: 01/10/17 14:40 Dose: 4 mg Diphenhydramine HCl (Benadryl) 50 mg IVP Q4H PRN PRN Reason: Allergy symptoms Last Admin: 01/09/17 21:47 Dose: 50 mg Heparin Sodium (Porcine) (Heparin) 5,000 units SC Q12 [facility] PRN Reason: Protocol Last Admin: 01/10/17 09:34 Dose: 5,000 units Ampicillin Sodium/Sulbactam (Sodium 3 gm/ Sodium Chloride) 100 mls @ 200 mls/ hr IVPB Q6 [facility] PRN Reason: Protocol Last Admin: 01/10/17 12:29 Dose: 200 mls/hr Fentanyl Citrate (Fentanyl Citrate/Sodium Chloride 1 Mg/100 Ml) 1,000 mcg in 100 mls @ 2 mls/hr IV .Q24H PRN; Protocol; 20 MCG/HR PRN Reason: TITRATE PER MD ORDER Last Titration: 01/10/17 08:21 Dose: 80 mcg/hr, 8 mls/hr Lactated Ringer's (Lactated Ringer's) 1,000 mls @ 150 mls/hr IV .Q6H40M [facility] Last Admin: 01/10/17 10:45 Dose: 150 mls/hr Ondansetron HCl (Zofran Inj) 4 mg IVP Q4H PRN PRN Reason: Nausea/Vomiting Pantoprazole Sodium (Protonix Inj) 40 mg IVP DAILY [facility] Last Admin: 01/10/17 09:35 Dose: 40 mg - Labs Labs: 01/10/17 06:40 01/10/17 06:40 PT 12.4 Seconds (9.9-11.8) H 01/10/17 09:53 INR 1.15 (0.93-1.08) H 01/10/17 09:53 APTT 28.4 Seconds (23.7-30.8) 01/10/17 09:53 Attending/Attestation - Attestation I have personally seen and examined this patient.: Yes I have fully participated in the care of the patient.: Yes I have reviewed all pertinent clinical information, including history, physical exam and plan: Yes Notes (Text): I have seen and examined patient at bedside. Agree with the above note with the following additions/ exceptions: Briefly this is 56 year old female with history of HTN, dyslipidemia, hypothyroidism, anxiety who presented with throat pain and found to have epiglotitis and peritonsillar abscess with significant swelling. Patient is alert, awake and intubated. Repeat CT scan pending for possible re exploration. Continue unasyn and decadron. Upon discharge patient will follow up with Dr Vail. Dr Estefania Beaulieu
--- NOTE | 2017-01-10 11:11 | CT ---
PROCEDURE: CT NECK WITH CONTRAST HISTORY: tonsilar abscess COMPARISON: CT of the neck 01/09/2017 TECHNIQUE: CT of the neck with intravenous contrast. Coronal and sagittal reformats generated. Intravenous contrast dose: 100 cc of Omni 350 Radiation dose: DLP 266 mGy-cm This CT exam was performed using one or more of the following dose reduction techniques: Automated exposure control, adjustment of the mA and/or kV according to patient size, and/or use of iterative reconstruction technique. FINDINGS: An endotracheal tube is now present which obscures many of the finding seen previously especially the epiglottic swelling and swelling of the right aryepiglottic fold. There is persistent swelling of the right palatine tonsil. The central fluid collections seen previously is faintly visible on today's study. Mildly enlarged cervical lymph nodes are seen right greater than left. IMPRESSION: Previously seen findings are partially obscured by the presence of an endotracheal tube. See comments
--- NOTE | 2017-01-10 11:26 | CP.PCM.PN ---
Subjective - Date & Time of Evaluation Date of Evaluation: 01/10/17 Time of Evaluation: 07:30 - Subjective Subjective: Keiry Chavez DO PGY1 - ICU Progress Note Patient seen and examined at bedside. Nurse reports no acute events overnight. Patient remained intubated, slightly sedated on fentanyl. Son is at bedside. She appears to be resting comfortably, on pressure support mode on the ventilator. Patient is arousable and responsive. She denies CP, SOB, fever, chills, nausea. Objective - Vital Signs/Intake and Output Vital Signs (last 24 hours): Temp Pulse Resp BP Pulse Ox 97.8 F 56 L 14 134/74 100 01/10/17 08:00 01/10/17 08:10 01/10/17 07:05 01/10/17 08:00 01/10/17 08:10 Intake and Output: 01/10/17 01/10/17 06:59 18:59 Intake Total 1500 5 Output Total 200 Balance 1300 5 - Medications Medications: Current Medications Dexamethasone (Decadron Inj) 4 mg IVP Q8 [facility] Last Admin: 01/10/17 05:24 Dose: 4 mg Diphenhydramine HCl (Benadryl) 50 mg IVP Q4H PRN PRN Reason: Allergy symptoms Last Admin: 01/09/17 21:47 Dose: 50 mg Heparin Sodium (Porcine) (Heparin) 5,000 units SC Q12 [facility] PRN Reason: Protocol Last Admin: 01/10/17 09:34 Dose: 5,000 units Ampicillin Sodium/Sulbactam (Sodium 3 gm/ Sodium Chloride) 100 mls @ 200 mls/ hr IVPB Q6 [facility] PRN Reason: Protocol Last Admin: 01/10/17 05:24 Dose: 200 mls/hr Fentanyl Citrate (Fentanyl Citrate/Sodium Chloride 1 Mg/100 Ml) 1,000 mcg in 100 mls @ 2 mls/hr IV .Q24H PRN; Protocol; 20 MCG/HR PRN Reason: TITRATE PER MD ORDER Last Titration: 01/10/17 08:21 Dose: 80 mcg/hr, 8 mls/hr Lactated Ringer's (Lactated Ringer's) 1,000 mls @ 150 mls/hr IV .Q6H40M [facility] Last Admin: 01/10/17 10:45 Dose: 150 mls/hr Ondansetron HCl (Zofran Inj) 4 mg IVP Q4H PRN PRN Reason: Nausea/Vomiting Pantoprazole Sodium (Protonix Inj) 40 mg IVP DAILY [facility] Last Admin: 01/10/17 09:35 Dose: 40 mg - Labs Labs: 01/10/17 06:40 01/10/17 06:40 PT 12.4 Seconds (9.9-11.8) H 01/10/17 09:53 INR 1.15 (0.93-1.08) H 01/10/17 09:53 APTT 28.4 Seconds (23.7-30.8) 01/10/17 09:53 - Constitutional Appears: Non-toxic, No Acute Distress - Head Exam Head Exam: ATRAUMATIC, NORMOCEPHALIC - Eye Exam Eye Exam: EOMI, Normal appearance - ENT Exam ENT Exam: Mucous Membranes Moist Additional comments: Patient remains intubated, difficult to assess oropharynx - Neck Exam Neck Exam: Normal Inspection - Respiratory Exam Respiratory Exam: Clear to Ausculation Bilateral. absent: Rales, Rhonchi - Cardiovascular Exam Cardiovascular Exam: RRR, +S1, +S2 - GI/Abdominal Exam GI & Abdominal Exam: Soft, Normal Bowel Sounds. absent: Tenderness - Extremities Exam Extremities Exam: Normal Inspection. absent: Calf Tenderness, Pedal Edema - Neurological Exam Neurological Exam: Alert, Awake, Oriented x3 - Psychiatric Exam Psychiatric exam: Normal Affect, Normal Mood - Skin Skin Exam: Dry, Intact Assessment and Plan - Assessment and Plan (Free Text) Assessment: Pt is a 56 year old female presenting to the ICU s/p incision and drainage of tonsillar abscess, intubated, for ventilator management and monitoring of respiratory status. Plan: Neuro: - Awake and alert, responding appropriately shaking/nodding head - Mildly sedated on fentanyl, will withdraw sedation prior to extubation CV: - Hemodynamically stable - Maintain MAP >65 Pulm: - On ventilator, started weaning protocol, currently on pressure support mode, patient is maintaining sat on 40% FiO2 - Will likely extubate today, after ENT evaluation, if cleared by them ENT: - Tonsillar abscess and epiglottitis, currently intubated to maintain airway - Repeat Soft Tissue CT neck with contrast to evaluate for continued swelling and assess status of fluid collection noted on prior exam - ENT consulted, will come evaluate today and potentially reoperate vs extubate - On decadron and unasyn GI: - Currently NPO - Advance diet after extubation - Protonix for ppx Renal: - Maintain euvolemia - Monitor and replete lytes as needed - Switched NS to LR@150 due to increasing sodium and hyperchloremia Endo: - Maintain euglycemia Hem: - Mild decrease in H/H, likely dilutional. No active bleed - Continue to monitor ID: - Tonsillar abscess and epiglottitis, s/p incision and drainage by ENT - Afebrile, leukocytosis improving - Continue unasyn per ID, continue decadron - Repeat CT scan today to look for resolution vs reaccumulation of fluid. Will be reassessed by ENT today to determine if it is safe to extubate her. GI/DVT Ppx - Protonix, heparin Patient seen, discussed, and reviewed with attending
--- NOTE | 2017-01-10 11:26 | RAD ---
HISTORY: intubated COMPARISON: No prior. FINDINGS: LUNGS: No active pulmonary disease. PLEURA: No significant pleural effusion identified, no pneumothorax apparent. CARDIOVASCULAR: Normal. OSSEOUS STRUCTURES: No significant abnormalities. VISUALIZED UPPER ABDOMEN: Normal. OTHER FINDINGS: None. IMPRESSION: Endotracheal tube in satisfactory position
--- NOTE | 2017-01-10 12:49 | CP.PCM.PN ---
Subjective - Date & Time of Evaluation Date of Evaluation: 01/10/17 Time of Evaluation: 08:30 - Subjective Subjective: Patient sen and examined. Patient remains intubated post procedure, doing well on CPAP. On Unasyn. No major complaints. Objective - Vital Signs/Intake and Output Vital Signs (last 24 hours): Temp Pulse Resp BP Pulse Ox 97.8 F 56 L 14 134/74 100 01/10/17 08:00 01/10/17 08:10 01/10/17 07:05 01/10/17 08:00 01/10/17 08:10 Intake and Output: 01/10/17 01/10/17 06:59 18:59 Intake Total 1500 5 Output Total 200 Balance 1300 5 - Medications Medications: Current Medications Dexamethasone (Decadron Inj) 4 mg IVP Q8 [facility] Last Admin: 01/10/17 05:24 Dose: 4 mg Diphenhydramine HCl (Benadryl) 50 mg IVP Q4H PRN PRN Reason: Allergy symptoms Last Admin: 01/09/17 21:47 Dose: 50 mg Heparin Sodium (Porcine) (Heparin) 5,000 units SC Q12 [facility] PRN Reason: Protocol Last Admin: 01/10/17 09:34 Dose: 5,000 units Ampicillin Sodium/Sulbactam (Sodium 3 gm/ Sodium Chloride) 100 mls @ 200 mls/ hr IVPB Q6 [facility] PRN Reason: Protocol Last Admin: 01/10/17 05:24 Dose: 200 mls/hr Fentanyl Citrate (Fentanyl Citrate/Sodium Chloride 1 Mg/100 Ml) 1,000 mcg in 100 mls @ 2 mls/hr IV .Q24H PRN; Protocol; 20 MCG/HR PRN Reason: TITRATE PER MD ORDER Last Titration: 01/10/17 08:21 Dose: 80 mcg/hr, 8 mls/hr Lactated Ringer's (Lactated Ringer's) 1,000 mls @ 150 mls/hr IV .Q6H40M [facility] Last Admin: 01/10/17 10:45 Dose: 150 mls/hr Ondansetron HCl (Zofran Inj) 4 mg IVP Q4H PRN PRN Reason: Nausea/Vomiting Pantoprazole Sodium (Protonix Inj) 40 mg IVP DAILY [facility] Last Admin: 01/10/17 09:35 Dose: 40 mg - Labs Labs: 08/10/17 06:40 01/10/17 06:40 PT 12.4 Seconds (9.9-11.8) H 01/10/17 09:53 INR 1.15 (0.93-1.08) H 01/10/17 09:53 APTT 28.4 Seconds (23.7-30.8) 01/10/17 09:53 - Constitutional Appears: Well, Non-toxic - Head Exam Head Exam: ATRAUMATIC - Eye Exam Eye Exam: Normal appearance - Respiratory Exam Respiratory Exam: Clear to Ausculation Bilateral, NORMAL BREATHING PATTERN - Cardiovascular Exam Cardiovascular Exam: RRR, +S1, +S2 - GI/Abdominal Exam GI & Abdominal Exam: Soft, Normal Bowel Sounds - Extremities Exam Extremities Exam: Full ROM - Neurological Exam Neurological Exam: Awake Assessment and Plan - Assessment and Plan (Free Text) Assessment: 56yo female a/w Epiglottitis, tonsilar abscess Epiglottitis Tonsilar Abscess HTN Recommend - patient doing well on ventilator, awaiting ENT recommendations regarding possible OR re-exploration, otherwise would extubate if has cuff leak - repeat CT scan of neck is obscured by ETT - low tidal volume ventilation - Unasyn IV - follow up cultures - aggressive IVF hydration, patient received contrast - Decadron IV - NPO - repeat CT Neck in the AM - follow up ENT - monitor FS - GI ppx - DVT ppx - cont care in MICU
--- NOTE | 2017-01-10 15:39 | CP.PCM.CON ---
History of Present Illness - History of Present Illness History of Present Illness: 56 year old female with PMH of HTN, dyslipidemia, hypothyroidism, anxiety disorder, osteoporosis was brought in to [facility] because of worsening throat pain for the past 3-4 days with difficulty in swallowing both solids and liquids. She denies SOB or difficulty breathing. She has subjective fevers and chills, no cough or colds, no headache or dizziness, no blurring of vision, no chest pain, no abdominal pain, no diarrhea, no dysuria. She was prescribed Levaquin as an outpatient with minimal relief, CT of the neck showed peritonsillar abscess and she underwent I and D by ENT. Infectious Diseases consult is requested to further evaluate and manage. Review of Systems - Review of Systems All systems: reviewed and no additional remarkable complaints except (as per hPI ) Past Patient History - Past Social History Smoking Status: Never Smoked Alcohol: None Drugs: Denies - CARDIAC Hx Hypercholesterolemia: Yes Hx Hypertension: Yes - PULMONARY Hx Respiratory Disorders: No - NEUROLOGICAL Hx Neurological Disorder: No - HEENT Hx HEENT Problems: No - RENAL Hx Chronic Kidney Disease: No - ENDOCRINE/METABOLIC Hx Hypothyroidism: Yes - HEMATOLOGICAL/ONCOLOGICAL Hx Blood Disorders: No - INTEGUMENTARY Hx Dermatological Problems: No - MUSCULOSKELETAL/RHEUMATOLOGICAL Hx Musculoskeletal Disorders: No - GASTROINTESTINAL Hx Gastrointestinal Disorders: No - GENITOURINARY/GYNECOLOGICAL Hx Genitourinary Disorders: No - PSYCHIATRIC Hx Psychophysiologic Disorder: No Hx Substance Use: No - SURGICAL HISTORY Hx Surgeries: No Meds Allergies/Adverse Reactions: Allergies Allergy/AdvReac Type Severity Reaction Status Date / Time No Known Allergies Allergy Verified 01/09/17 11:36 - Medications Medications: Current Medications Dexamethasone (Decadron Inj) 4 mg IVP Q8 [facility] Last Admin: 01/09/17 13:42 Dose: 4 mg Sodium Chloride (Sodium Chloride 0.9%) 1,000 mls @ 100 mls/hr IV .Q10H [facility] Last Admin: 01/09/17 09:45 Dose: 100 mls/hr Ampicillin Sodium/Sulbactam (Sodium 3 gm/ Sodium Chloride) 100 mls @ 200 mls/ hr IVPB Q6 [facility] PRN Reason: Protocol Ondansetron HCl (Zofran Inj) 4 mg IVP Q4H PRN PRN Reason: Nausea/Vomiting Pantoprazole Sodium (Protonix Inj) 40 mg IVP DAILY [facility] Last Admin: 01/09/17 14:09 Dose: 40 mg Physical Exam - Constitutional Appears: Non-toxic, No Acute Distress - Head Exam Head Exam: NORMAL INSPECTION - Neck Exam Neck exam: Negative for: Meningismus - Respiratory Exam Respiratory Exam: Decreased Breath Sounds - Cardiovascular Exam Cardiovascular Exam: +S1, +S2 - GI/Abdominal Exam GI & Abdominal Exam: Soft. absent: Tenderness Results - Vital Signs Recent Vital Signs: Last Vital Signs Temp 98.2 F 01/09/17 12:55 Pulse 83 01/09/17 12:55 Resp 18 01/09/17 12:55 BP 121/70 01/09/17 12:55 Pulse Ox 98 01/09/17 12:20 - Labs Result Diagrams: 01/10/17 06:40 01/10/17 06:40 Assessment & Plan - Assessment and Plan (Free Text) Plan: Assessment Sepsis due to peritonsillar abscess S/P I and D POD #1 HTN dyslipidemia hypothyroidism anxiety disorder osteoporosis Plan Started patient on Unasyn pending blood cx and cx of the peritonsillar abscess will monitor clinically
--- NOTE | 2017-01-10 22:41 | PN ---
DATE: 01/10/2017 EAR, NOSE AND THROAT PROGRESS NOTE SUBJECTIVE: Patient seen and examined at the bedside. She was extubated about an hour ago and is saturating well on 2 liters of nasal cannula. Patient states she was feeling improved from yesterday. She does still note some right-sided neck pain, however, this is improved. She denies any difficulty breathing, shortness of breath, noisy breathing, stridor, drooling, inability to tolerate saliva. She does note a little pain with swallowing, however, no dysphagia. Denies fevers, chills, overnight chest pain, shortness of breath. PHYSICAL EXAMINATION GENERAL: She is awake, alert, oriented x3 in no acute distress, resting comfortably. VITAL SIGNS: Temperature 98.2, pulse is 60, respirations 19, blood pressure 117/56, 100% O2 saturation on nasal cannula. HEENT: Eyes, extraocular movements grossly intact. Nose is patent bilaterally. No discharge. No epistaxis. Oral cavity, oropharynx, lips are unremarkable. No floor of mouth edema. Tongue, mobile and midline. Uvula midline. There is erythema to the right peritonsillar region at the surgical incision site, however, no drainage or bleeding or edema noted. Posterior pharynx is clear. NECK: Soft, supple, trachea midline, no thyromegaly, slightly tender to palpation on the right side. No masses, lesions or lymphadenopathy palpated. Respirations are nonlabored. No stridor. LABORATORY DATA: She has white blood cell count of 11.6, hemoglobin 11.1, hematocrit 34.6, platelets of 149. PT 12.4, INR 1.15. Her blood cultures from 01/09 are negative to date. Gram stains of the peritonsillar abscess culture showing a rare gram negative rods with results to follow. CAT scan, she had a repeat CAT scan this morning before extubation, which demonstrated an endotracheal tube in place, which obscures some of the findings seen yesterday and central fluid collection seen previously faintly visible on the scan today. PROCEDURE: Direct fiber laryngoscopy. The direct fiber laryngoscope was inserted into the patient's left nasal cavity and advanced to the posterior nasopharynx where it is flexed down towards the larynx. The base of the tongue and posterior pharynx overall demonstrating normal anatomy. There was some small amount of erythema to the right peritonsillar region where the incision was made yesterday. The epiglottis has been normal in appearance. The pyriform sinus was slightly blunted on the right side, however, improved from yesterday and nonobstructive. Pyriform sinus on the left side was normal. Area of the glottic fold with no edema on both sides, vocal cords with no edema, and ____ approximated normally during pronation. Scope was removed and the patient tolerated the procedure well. ASSESSMENT AND PLAN: This is a 56-year-old female who presented yesterday with peritonsillar and pyriform sinus abscess with a mild epiglottitis and swelling to the area of epiglottic fold. She is now status post intubation with drainage of the peritonsillar abscess in the operating room yesterday, postop day 1. She has been since extubated and is saturating well on room air. At this point, we recommend continuing high dose steroid, Decadron 8 mg q. 8 and Unasyn 3 mg q. 6 while the patient is in-house. We will put her on humidified air as needed. Tonight, we would start her on a clear liquid diet and advance tomorrow morning for breakfast. She is okay to resume heparin subq as we will not be performing any additional procedures at this time. If patient continues to improve clinically, would clear her for discharge tomorrow on p.o. Augmentin and Medrol Dosepak. She will be instructed to follow up in the office with us within 1 week to ensure resolution of her symptoms. I would also follow up the cultures that were taken at the bedside in the operating room incision and drainage to tailor antibiotic therapy. Remainder of the management is as per the primary team. At this point, would be okay to place her in a stepdown unit. Atilio Headley DO
[2017-01-10] MEDS: DiphenhydrAMINE 50 mg/ml Inj IVP PRN (22:57)
[2017-01-11] MEDS: Ampicillin/Sulbactam 3 GM in Sodium Chloride 0.9% 100 ML IVPB SCH ×3 (00:15→12:24)
[2017-01-11] MEDS: Lactated Ringer's 1,000 ML IV SCH ×3 (02:17→14:11)
[2017-01-11] MEDS: Dexamethasone 4 mg/1 ml IVP SCH ×2 (05:57→14:10)
[2017-01-11 06:29] LABS: HEMOGLOBIN 10.9 g/dL (12.0-16.0); LYMPH # 1.5 (1.2-3.4); LYMPH % 17.6 % (22.0-35.0); MEAN CELL VOLUME 88.1 fl (80.0-105.0); MEAN CORPUSCULAR HEMOGLOBIN 28.3 pg (25.0-35.0); MEAN CORPUSCULAR HGB CONC 32.2 g/dl (31.0-37.0); MEAN PLATELET VOLUME 11.8 fl (7.0-11.0); MONO # 0.3 (0.1-0.6); MONO % 3.4 % (1.0-6.0); PLATELET COUNT 167 10^3/uL (120.0-450.0); RBC 3.85 10^6/uL (3.5-6.1); RED CELL DISTRIBUTION WIDTH 14.6 % (11.5-14.5); WHITE BLOOD COUNT 8.4 10^3/ul (4.5-11.0)
[2017-01-11 06:41] LABS: ALB/GLOB RATIO 1.2 (1.1-1.8); ALBUMIN 3.6 g/dL (3.0-4.8); ALT/SGPT 30 U/L (7-56); AST/SGOT 23 U/L (15-39); BLOOD UREA NITROGEN 23 mg/dL (7-21); CALCIUM 8.2 mg/dL (8.4-10.5); GFR AFRICAN-AMERICAN > 60; GFR NON-AFRICAN AMERICAN > 60
[2017-01-11 08:36] VITALS: BP 145/90; TEMP 97.8
--- NOTE | 2017-01-11 10:09 | CP.PCM.PN ---
Subjective - Date & Time of Evaluation Date of Evaluation: 01/11/17 Time of Evaluation: 09:30 - Subjective Subjective: Comfortable, now extubated, afebrile overnight. Objective - Vital Signs/Intake and Output Vital Signs (last 24 hours): Temp Pulse Resp BP Pulse Ox 98 F 51 L 16 121/64 96 01/11/17 04:00 01/11/17 04:50 01/11/17 04:50 01/11/17 04:00 01/11/17 04:50 Intake and Output: 01/10/17 01/11/17 18:59 06:59 Intake Total 1955 Balance 1955 - Medications Medications: Current Medications Dexamethasone (Decadron Inj) 8 mg IVP Q8 [facility] Last Admin: 01/11/17 05:57 Dose: 8 mg Diphenhydramine HCl (Benadryl) 50 mg IVP Q4H PRN PRN Reason: Allergy symptoms Last Admin: 01/10/17 22:57 Dose: 50 mg Heparin Sodium (Porcine) (Heparin) 5,000 units SC Q12 [facility] PRN Reason: Protocol Last Admin: 01/10/17 09:34 Dose: 5,000 units Ampicillin Sodium/Sulbactam (Sodium 3 gm/ Sodium Chloride) 100 mls @ 200 mls/ hr IVPB Q6 [facility] PRN Reason: Protocol Last Admin: 01/11/17 05:58 Dose: 200 mls/hr Lactated Ringer's (Lactated Ringer's) 1,000 mls @ 150 mls/hr IV .Q6H40M [facility] Last Admin: 01/11/17 02:17 Dose: 150 mls/hr Ondansetron HCl (Zofran Inj) 4 mg IVP Q4H PRN PRN Reason: Nausea/Vomiting Pantoprazole Sodium (Protonix Inj) 40 mg IVP DAILY [facility] Last Admin: 01/10/17 09:35 Dose: 40 mg - Labs Labs: 01/10/17 06:40 01/10/17 06:40 PT 12.4 Seconds (9.9-11.8) H 01/10/17 09:53 INR 1.15 (0.93-1.08) H 01/10/17 09:53 APTT 28.4 Seconds (23.7-30.8) 01/10/17 09:53 - Constitutional Appears: Non-toxic, No Acute Distress - Head Exam Head Exam: NORMAL INSPECTION - Neck Exam Neck Exam: absent: Meningismus - Respiratory Exam Respiratory Exam: Decreased Breath Sounds - Cardiovascular Exam Cardiovascular Exam: +S1, +S2 - GI/Abdominal Exam GI & Abdominal Exam: Soft. absent: Tenderness Assessment and Plan - Assessment and Plan (Free Text) Plan: Assessment Sepsis due to peritonsillar abscess S/P I and D POD #2, growing gram negative bacilli on gram stain of the abscess HTN dyslipidemia hypothyroidism anxiety disorder osteoporosis Plan continue Unasyn day 2 pending indentification and sensitivities of the gram negative bacilli in the abscess; blood cx are negative will continue to monitor clinically
[2017-01-11 10:41] VITALS: PULSE 59; RESP 21; O2SAT 96
--- NOTE | 2017-01-11 14:39 | CP.PCM.DIS ---
Provider - Provider Date of Admission: 01/09/17 10:21 Attending physician: Estefania Beaulieu MD Primary care physician: PMD: Dr. Jacques Vail Consults: ENT: Dr. Atilio Headley Infectious Disease: Dr. Perez Bautista Pulmonary and Critical Care: Dr. Ezekiel Barrera Time Spent in preparation of Discharge (in minutes): 30 Diagnosis - Discharge Diagnosis (1) Epiglottitis Status: Acute (2) Tonsillar abscess Status: Acute Hospital Course - Lab Results Lab Results: Micro Results 01/09/17 15:30 Other: Please Indicate Gram Stain - Final 01/09/17 15:30 Other: Please Indicate Anaerobic Culture - Final NO ANAEROBES ISOLATED. 01/09/17 15:30 Other: Please Indicate Wound Culture - Preliminary Gram Positive Cocci Most Recent Lab Values WBC 8.4 10^3/ul (4.5-11.0) D 01/11/17 06:10 RBC 3.85 10^6/uL (3.5-6.1) 01/11/17 06:10 Hgb 10.9 g/dL (12.0-16.0) L 01/11/17 06:10 Hct 33.9 % (36.0-48.0) L 01/11/17 06:10 MCV 88.1 fl (80.0-105.0) 01/11/17 06:10 MCH 28.3 pg (25.0-35.0) 01/11/17 06:10 MCHC 32.2 g/dl (31.0-37.0) 01/11/17 06:10 RDW 14.6 % (11.5-14.5) H 01/11/17 06:10 Plt Count 167 10^3/uL (120.0-450.0) 01/11/17 06:10 MPV 11.8 fl (7.0-11.0) H 01/11/17 06:10 Gran % 79.0 % (50.0-68.0) H 01/11/17 06:10 Lymph % (Auto) 17.6 % (22.0-35.0) L 01/11/17 06:10 Gonzales % (Auto) 3.4 % (1.0-6.0) 01/11/17 06:10 Eos % (Auto) 0.0 % (1.5-5.0) L 01/11/17 06:10 Baso % (Auto) 0.0 % (0.0-3.0) 01/11/17 06:10 Gran # 6.60 (1.4-6.5) H 01/11/17 06:10 Lymph # 1.5 (1.2-3.4) 01/11/17 06:10 Gonzales # 0.3 (0.1-0.6) 01/11/17 06:10 Eos # 0.0 (0.0-0.7) 01/11/17 06:10 Baso # 0.00 K/mm3 (0.0-2.0) 01/11/17 06:10 ESR 44 mm/hr (0.0-20.0) H 01/09/17 07:55 PT 12.4 Seconds (9.9-11.8) H 01/10/17 09:53 INR 1.15 (0.93-1.08) H 01/10/17 09:53 APTT 28.4 Seconds (23.7-30.8) 01/10/17 09:53 Sodium 144 mmol/L (132-148) 01/11/17 06:10 Potassium 3.9 mmol/L (3.6-5.0) 01/11/17 06:10 Chloride 107 mmol/L (98-107) 01/11/17 06:10 Carbon Dioxide 27 mmol/L (21-33) 01/11/17 06:10 Anion Gap 14 (10-20) 01/11/17 06:10 BUN 23 mg/dL (7-21) H 01/11/17 06:10 Creatinine 0.7 mg/dL (0.5-1.4) 01/11/17 06:10 Est GFR ( Amer) > 60 01/11/17 06:10 Est GFR (Non-Af Amer) > 60 01/11/17 06:10 POC Glucose (mg/dL) 141 mg/dL (65-110) H 01/11/17 07:40 Random Glucose 132 mg/dL (70-110) H 01/11/17 06:10 Calcium 8.2 mg/dL (8.4-10.5) L 01/11/17 06:10 Total Bilirubin 0.3 mg/dL (0.2-1.3) 01/11/17 06:10 AST 23 U/L (15-39) 01/11/17 06:10 ALT 30 U/L (7-56) 01/11/17 06:10 Alkaline Phosphatase 43 U/L (38-133) 01/11/17 06:10 Total Protein 6.5 g/dL (5.8-8.3) 01/11/17 06:10 Albumin 3.6 g/dL (3.0-4.8) 01/11/17 06:10 Globulin 2.9 gm/dL 01/11/17 06:10 Albumin/Globulin Ratio 1.2 (1.1-1.8) 01/11/17 06:10 TSH 3rd Generation 3.10 mIU/mL (0.46-4.68) 01/09/17 07:55 - Hospital Course Hospital Course: 56 year old female with past medical history of HTN, HLD, Hypothyroidism and anxiety who was admitted for right peritonsillar abscess with associated edema to the epiglottis. The patient was evaluated in ED with soft tissue neck CT showing severe swelling of the right palatine tonsil with low density fluid collection measuring 8x40 mm and swelling of the epiglottis and right-sided epiglottic fold consistent with epiglottitis. Otolarynology was consulted and evaluated the patient in the ED and recommended drainage of abscess in OR as well as continued IV steroids and Ampicillin/Sulbactam. The patient was taken to the OR and her peritonsillar abscess was drained. During the procedure notes indicate the patient had edematous changes to the epiglottis and aryepiglottic fold and she was intubated to safely protect the airway. The patient was transferred to the ICU for further observation and management of ventilator. The patient underwent a repeat soft tissue neck CT for evaluation of abscess progression and swelling. No acute changes were noted and the patient was extubated. Her diet was started with clear liquids and advanced with soft diet with toleration. The patient reported improvement of her swallowing from presentation. She was educated on advancing her diet appropriately and indications for returning to the hospital. The patient was evaluated to be hemodynamically stable and with appropriate airway to be discharged home with oral antibiotics and steroids. Patient was instructed to complete her medication regiment as prescribed and to follow up with her PMD outpatient. - Date & Time of H&P Date of H&P: 01/09/17 Time of H&P: 11:34 Discharge Exam - Head Exam Head Exam: ATRAUMATIC, NORMAL INSPECTION, NORMOCEPHALIC - Eye Exam Eye Exam: EOMI, PERRL - ENT Exam ENT Exam: Mucous Membranes Moist, Normal Exam - Neck Exam Neck exam: Full Rom, Tenderness (mild located at right side of neck) - Respiratory Exam Respiratory Exam: Clear to PA & Lateral, NORMAL BREATHING PATTERN. absent: Stridor - Cardiovascular Exam Cardiovascular Exam: REGULAR RHYTHM, +S1, +S2 - GI/Abdominal Exam GI & Abdominal Exam: Normal Bowel Sounds, Soft - Rectal Exam Rectal Exam: Deferred - Extremities Exam Extremities exam: full ROM, normal capillary refill, pedal pulses present - Back Exam Back exam: FULL ROM. absent: paraspinal tenderness - Neurological Exam Neurological exam: Alert, CN II-XII Intact, Normal Gait, Oriented x3, Reflexes Normal - Psychiatric Exam Psychiatric exam: Normal Affect, Normal Mood - Skin Skin Exam: Dry, Intact, Normal Color, Warm Discharge Plan - Discharge Medications Prescriptions: Amoxicillin/Clavulanate [Augmentin 875 MG-125 MG] 1 tab PO BID #28 tab Benzocaine/Menthol [Cepacol Sore Throat Lozenge] 1 each MM DAILY PRN #10 lozenge PRN Reason: Sore Throat Methylprednisolone [Medrol Dose Pack (21 tabs)] See Taper PO DAILY #21 mg - Follow Up Plan Condition: CRITICAL Disposition: HOME/ ROUTINE Additional Instructions: 1. Follow up with your primary doctor within 1 week of discharge. 2. Follow up with your ENT, Dr. Headley within 1 week of discharge. Please call his office to make an appointment. 3. Take the medications prescribed to you as directed. 4. Return to the emergency room if you have a worsening of your symptoms.
--- NOTE | 2017-01-11 15:18 | CP.PCM.DIS ---
<Murtaza Benavidez - Last Filed: 01/11/17 15:16> Provider - Provider Date of Admission: 01/09/17 10:21 Attending physician: Estefania Beaulieu MD Primary care physician: Dr. Jacques Vail Consults: ENT: Dr. Atilio Headley Infectious Disease: Dr. Perez Bautista Pulmonary and Critical Care: Dr. Ezekiel Barrera Time Spent in preparation of Discharge (in minutes): 30 Hospital Course - Lab Results Lab Results: Micro Results 01/09/17 15:30 Other: Please Indicate Gram Stain - Final 01/09/17 15:30 Other: Please Indicate Anaerobic Culture - Final NO ANAEROBES ISOLATED. 01/09/17 15:30 Other: Please Indicate Wound Culture - Preliminary Gram Positive Cocci Most Recent Lab Values WBC 8.4 10^3/ul (4.5-11.0) D 01/11/17 06:10 RBC 3.85 10^6/uL (3.5-6.1) 01/11/17 06:10 Hgb 10.9 g/dL (12.0-16.0) L 01/11/17 06:10 Hct 33.9 % (36.0-48.0) L 01/11/17 06:10 MCV 88.1 fl (80.0-105.0) 01/11/17 06:10 MCH 28.3 pg (25.0-35.0) 01/11/17 06:10 MCHC 32.2 g/dl (31.0-37.0) 01/11/17 06:10 RDW 14.6 % (11.5-14.5) H 01/11/17 06:10 Plt Count 167 10^3/uL (120.0-450.0) 01/11/17 06:10 MPV 11.8 fl (7.0-11.0) H 01/11/17 06:10 Gran % 79.0 % (50.0-68.0) H 01/11/17 06:10 Lymph % (Auto) 17.6 % (22.0-35.0) L 01/11/17 06:10 [place] % (Auto) 3.4 % (1.0-6.0) 01/11/17 06:10 Eos % (Auto) 0.0 % (1.5-5.0) L 01/11/17 06:10 Baso % (Auto) 0.0 % (0.0-3.0) 01/11/17 06:10 Gran # 6.60 (1.4-6.5) H 01/11/17 06:10 Lymph # 1.5 (1.2-3.4) 01/11/17 06:10 [place] # 0.3 (0.1-0.6) 01/11/17 06:10 Eos # 0.0 (0.0-0.7) 01/11/17 06:10 Baso # 0.00 K/mm3 (0.0-2.0) 01/11/17 06:10 ESR 44 mm/hr (0.0-20.0) H 01/09/17 07:55 PT 12.4 Seconds (9.9-11.8) H 01/10/17 09:53 INR 1.15 (0.93-1.08) H 01/10/17 09:53 APTT 28.4 Seconds (23.7-30.8) 01/10/17 09:53 Sodium 144 mmol/L (132-148) 01/11/17 06:10 Potassium 3.9 mmol/L (3.6-5.0) 01/11/17 06:10 Chloride 107 mmol/L (98-107) 01/11/17 06:10 Carbon Dioxide 27 mmol/L (21-33) 01/11/17 06:10 Anion Gap 14 (10-20) 01/11/17 06:10 BUN 23 mg/dL (7-21) H 01/11/17 06:10 Creatinine 0.7 mg/dL (0.5-1.4) 01/11/17 06:10 Est GFR ( Amer) > 60 01/11/17 06:10 Est GFR (Non-Af Amer) > 60 01/11/17 06:10 POC Glucose (mg/dL) 141 mg/dL (65-110) H 01/11/17 07:40 Random Glucose 132 mg/dL (70-110) H 01/11/17 06:10 Calcium 8.2 mg/dL (8.4-10.5) L 01/11/17 06:10 Total Bilirubin 0.3 mg/dL (0.2-1.3) 01/11/17 06:10 AST 23 U/L (15-39) 01/11/17 06:10 ALT 30 U/L (7-56) 01/11/17 06:10 Alkaline Phosphatase 43 U/L (38-133) 01/11/17 06:10 Total Protein 6.5 g/dL (5.8-8.3) 01/11/17 06:10 Albumin 3.6 g/dL (3.0-4.8) 01/11/17 06:10 Globulin 2.9 gm/dL 01/11/17 06:10 Albumin/Globulin Ratio 1.2 (1.1-1.8) 01/11/17 06:10 TSH 3rd Generation 3.10 mIU/mL (0.46-4.68) 01/09/17 07:55 - Hospital Course Hospital Course: 56 year old female with past medical history of HTN, HLD, Hypothyroidism and anxiety who was admitted for right peritonsillar abscess with associated edema to the epiglottis. The patient was evaluated in ED with soft tissue neck CT showing severe swelling of the right palatine tonsil with low density fluid collection measuring 8x40 mm and swelling of the epiglottis and right-sided epiglottic fold consistent with epiglottitis. Otolarynology was consulted and evaluated the patient in the ED and recommended drainage of abscess in OR as well as continued IV steroids and Ampicillin/Sulbactam. The patient was taken to the OR and her peritonsillar abscess was drained. During the procedure notes indicate the patient had edematous changes to the epiglottis and aryepiglottic fold and she was intubated to safely protect the airway. The patient was transferred to the ICU for further observation and management of ventilator. The patient underwent a repeat soft tissue neck CT for evaluation of abscess progression and swelling. No acute changes were noted and the patient was extubated. Her diet was started with clear liquids and advanced with soft diet with toleration. The patient reported improvement of her swallowing from presentation. She was educated on advancing her diet appropriately and indications for returning to the hospital. The patient was evaluated to be hemodynamically stable and with appropriate airway to be discharged home with oral antibiotics and steroids. Patient was instructed to complete her medication regiment as prescribed and to follow up with her PMD outpatient. - Date & Time of H&P Date of H&P: 01/09/17 Time of H&P: 11:34 Discharge Exam - Head Exam Head Exam: ATRAUMATIC, NORMAL INSPECTION, NORMOCEPHALIC - Eye Exam Eye Exam: EOMI, PERRL - ENT Exam ENT Exam: Mucous Membranes Moist - Neck Exam Neck exam: Full Rom, Tenderness (mild right sided) - Respiratory Exam Respiratory Exam: Clear to PA & Lateral, NORMAL BREATHING PATTERN, UNREMARKABLE - Cardiovascular Exam Cardiovascular Exam: REGULAR RHYTHM, +S1, +S2 - GI/Abdominal Exam GI & Abdominal Exam: Normal Bowel Sounds, Soft - Rectal Exam Rectal Exam: Deferred - Extremities Exam Extremities exam: full ROM, normal capillary refill, pedal pulses present - Back Exam Back exam: FULL ROM - Neurological Exam Neurological exam: Alert, CN II-XII Intact, Normal Gait, Oriented x3, Reflexes Normal - Psychiatric Exam Psychiatric exam: Normal Affect, Normal Mood - Skin Skin Exam: Dry, Intact, Normal Color, Warm Discharge Plan - Discharge Medications Prescriptions: Amoxicillin/Clavulanate [Augmentin 875 MG-125 MG] 1 tab PO BID #28 tab Benzocaine/Menthol [Cepacol Sore Throat Lozenge] 1 each MM DAILY PRN #10 lozenge PRN Reason: Sore Throat Methylprednisolone [Medrol Dose Pack (21 tabs)] See Taper PO DAILY #21 mg - Follow Up Plan Condition: CRITICAL Disposition: HOME/ ROUTINE Instructions: Acute Epiglottitis (DC), Peritonsillar Abscess (DC) Additional Instructions: 1. Follow up with your primary doctor within 1 week of discharge. 2. Follow up with your ENT, Dr. Headley within 1 week of discharge. Please call his office to make an appointment. 3. Take the medications prescribed to you as directed. 4. Return to the emergency room if you have a worsening of your symptoms. Referrals: Atilio Headley, [Staff Provider] - <Estefania Beaulieu - Last Filed: 01/11/17 16:42> Provider - Provider Date of Admission: 01/09/17 10:21 Attending physician: Estefania Beaulieu MD Hospital Course - Lab Results Lab Results: Micro Results 01/09/17 15:30 Other: Please Indicate Gram Stain - Final 01/09/17 15:30 Other: Please Indicate Anaerobic Culture - Final NO ANAEROBES ISOLATED. 01/09/17 15:30 Other: Please Indicate Wound Culture - Preliminary Gram Positive Cocci Most Recent Lab Values WBC 8.4 10^3/ul (4.5-11.0) D 01/11/17 06:10 RBC 3.85 10^6/uL (3.5-6.1) 01/11/17 06:10 Hgb 10.9 g/dL (12.0-16.0) L 01/11/17 06:10 Hct 33.9 % (36.0-48.0) L 01/11/17 06:10 MCV 88.1 fl (80.0-105.0) 01/11/17 06:10 MCH 28.3 pg (25.0-35.0) 01/11/17 06:10 MCHC 32.2 g/dl (31.0-37.0) 01/11/17 06:10 RDW 14.6 % (11.5-14.5) H 01/11/17 06:10 Plt Count 167 10^3/uL (120.0-450.0) 01/11/17 06:10 MPV 11.8 fl (7.0-11.0) H 01/11/17 06:10 Gran % 79.0 % (50.0-68.0) H 01/11/17 06:10 Lymph % (Auto) 17.6 % (22.0-35.0) L 01/11/17 06:10 [place] % (Auto) 3.4 % (1.0-6.0) 01/11/17 06:10 Eos % (Auto) 0.0 % (1.5-5.0) L 01/11/17 06:10 Baso % (Auto) 0.0 % (0.0-3.0) 01/11/17 06:10 Gran # 6.60 (1.4-6.5) H 01/11/17 06:10 Lymph # 1.5 (1.2-3.4) 01/11/17 06:10 [place] # 0.3 (0.1-0.6) 01/11/17 06:10 Eos # 0.0 (0.0-0.7) 01/11/17 06:10 Baso # 0.00 K/mm3 (0.0-2.0) 01/11/17 06:10 ESR 44 mm/hr (0.0-20.0) H 01/09/17 07:55 PT 12.4 Seconds (9.9-11.8) H 01/10/17 09:53 INR 1.15 (0.93-1.08) H 01/10/17 09:53 APTT 28.4 Seconds (23.7-30.8) 01/10/17 09:53 Sodium 144 mmol/L (132-148) 01/11/17 06:10 Potassium 3.9 mmol/L (3.6-5.0) 01/11/17 06:10 Chloride 107 mmol/L (98-107) 01/11/17 06:10 Carbon Dioxide 27 mmol/L (21-33) 01/11/17 06:10 Anion Gap 14 (10-20) 01/11/17 06:10 BUN 23 mg/dL (7-21) H 01/11/17 06:10 Creatinine 0.7 mg/dL (0.5-1.4) 01/11/17 06:10 Est GFR ( Amer) > 60 01/11/17 06:10 Est GFR (Non-Af Amer) > 60 01/11/17 06:10 POC Glucose (mg/dL) 141 mg/dL (65-110) H 01/11/17 07:40 Random Glucose 132 mg/dL (70-110) H 01/11/17 06:10 Calcium 8.2 mg/dL (8.4-10.5) L 01/11/17 06:10 Total Bilirubin 0.3 mg/dL (0.2-1.3) 01/11/17 06:10 AST 23 U/L (15-39) 01/11/17 06:10 ALT 30 U/L (7-56) 01/11/17 06:10 Alkaline Phosphatase 43 U/L (38-133) 01/11/17 06:10 Total Protein 6.5 g/dL (5.8-8.3) 01/11/17 06:10 Albumin 3.6 g/dL (3.0-4.8) 01/11/17 06:10 Globulin 2.9 gm/dL 01/11/17 06:10 Albumin/Globulin Ratio 1.2 (1.1-1.8) 01/11/17 06:10 TSH 3rd Generation 3.10 mIU/mL (0.46-4.68) 01/09/17 07:55 Attending/Attestation - Attestation I have personally seen and examined this patient.: Yes I have fully participated in the care of the patient.: Yes I have reviewed all pertinent clinical information, including history, physical exam and plan: Yes Notes (Text): I have seen and examined patient at bedside. Agree with the above note with the following additions/ exceptions: Briefly this is 56 year old female with history of HTN, dyslipidemia, hypothyroidism, anxiety who presented with throat pain and found to have epiglotitis and peritonsillar abscess with significant swelling s/p I&D. Wound culture revealed GPC. Patient is alert, awake, extubated and tolerating diet. Patient will be discharged home on medrol dose pack and augmentin. Upon discharge patient will follow up with Dr Vail. Dr Estefania Beaulieu
== END 2017-01-11 18:20 | disposition home or self-care (01) | DRG 901 ==
LOC: ED 07:06 → ERH 10:21 → CCU 12:33 → 3RSO 01-11 10:38
PROVIDERS: ADMIT Internal Medicine; ATTEND Hospitalist
PROC: 0C9 Mouth and Throat, Drainage (ICD-10-PCS; principal; 2017-01-09 14:00)
DX: A41.9 Sepsis, unspecified organism (principal); J36 Peritonsillar abscess; J05.10 Acute epiglottitis without obstruction; I10 Essential (primary) hypertension; E03.9 Hypothyroidism, unspecified; M81.0 Age-related osteoporosis without current pathological fracture; F41.9 Anxiety disorder, unspecified; E78.5 Hyperlipidemia, unspecified

== ENCOUNTER 2017-10-24 12:06 | Day surgery (SDC) | payer MEDICAID ==
[2017-07-29 11:22] VITALS: BMI 21.1
[2017-10-24 13:08] LABS: BASO # 0.03 K/mm3 (0.0-2.0); BASO % 0.5 % (0.0-3.0); EOS # 0.1 (0.0-0.7); EOS % 1.1 % (1.5-5.0); GRAN # 3.37 (1.4-6.5); GRAN % 50.9 % (50.0-68.0); HEMOGLOBIN 13.4 g/dL (12.0-16.0); LYMPH # 2.9 (1.2-3.4); LYMPH % 43.3 % (22.0-35.0); MEAN CELL VOLUME 86.3 fl (80.0-105.0); MEAN CORPUSCULAR HEMOGLOBIN 29.2 pg (25.0-35.0); MEAN CORPUSCULAR HGB CONC 33.8 g/dl (31.0-37.0); MONO # 0.3 (0.1-0.6); MONO % 4.2 % (1.0-6.0); RBC 4.59 10^6/uL (3.5-6.1); RED CELL DISTRIBUTION WIDTH 13.1 % (11.5-14.5); WHITE BLOOD COUNT 6.6 10^3/ul (4.5-11.0)
[2017-10-24 13:14] LABS: BLOOD UREA NITROGEN 18 mg/dL (7-21); CALCIUM 9.4 mg/dL (8.4-10.5); GFR AFRICAN-AMERICAN > 60; GFR NON-AFRICAN AMERICAN > 60
[2017-10-24 13:18] LABS: INR 1.06 (0.93-1.08); PARTIAL THROMBOPLASTIN TIME 28.2 Seconds (25.1-36.5); PROTHROMBIN TIME 12.2 SECONDS (9.4-12.5)
[2017-10-24] MEDS ORDERED: Midazolam 2 MG/2 ML VIAL ONE (14:28)
[2017-10-24] MEDS ORDERED: Lidocaine 1% Inj (20ml) ONE (14:29)
[2017-10-24] MEDS ORDERED: Oxycodone/Acetaminophen 5/325 mg Tab PO PRN (15:39)
[2017-10-24] MEDS ORDERED: Sodium Chloride 0.45% 1,000 ML IV SCH (15:45)
[2017-10-24 16:30] VITALS: RESP 20; TEMP 97.5; O2SAT 98
[2017-10-24] MEDS ORDERED: Oxycodone/Acetaminophen 5/325 mg Tab ONE (16:39)
--- NOTE | 2017-10-24 17:14 | US ---
PROCEDURE: Ultrasound-guided right thyroid fine needle aspiration biopsy. CLINICAL HISTORY: Multiple small bilateral thyroid nodules. [place] 6 mm x 24 mm dominant nodule in the right isthmus. Evaluate for malignancy. PHYSICIAN(S): Triston Gutierrez M.D. TECHNIQUE: The relative risks and indications for the procedure were explained to the patient and consent obtained. The patient was placed supine on the stretcher with the neck extended and preliminary sonography of the thyroid performed. This reveal an ob[place] 6 mm x 24 mm hypoechoic nodule in the right isthmus. Several additional small nodules are seen bilateral The neck was prepped and draped in the usual sterile fashion. Conscious sedation and monitoring were provided throughout the procedure by a nurse. 1% Xylocaine was used to anesthetize the skin and soft tissues at the access site. Three passes with a 22-gauge needle were performed under ultrasound guidance for fine needle aspiration of the 6 x 24 mm hypoechoic nodule in the right isthmus. The slides were reviewed by pathology and deemed adequate. The patient tolerated the procedure well. IMPRESSION: 1. Ultrasound guided fine needle aspiration of a 6 x 24 mm hypoechoic nodulenodule in the right isthmus
[2017-10-24 18:06] VITALS: BP 121/76; PULSE 67
== END 2017-10-24 18:15 | disposition home or self-care (01) ==
LOC: SDS 12:06
PROVIDERS: ATTEND Radiology Vascular & Interventional Radiology
DX: E06.3 Autoimmune thyroiditis (principal); E04.1 Nontoxic single thyroid nodule; I10 Essential (primary) hypertension; E78.5 Hyperlipidemia, unspecified; E03.9 Hypothyroidism, unspecified; R51 Headache; Z98.51 Tubal ligation status
CPT/HCPCS: 10022; 36415; 76942; 80048; 85025; 85610; 85730; 88173; 88305; 99152; J2250; J2405; J3010; J7030